=== PATIENT | female | born 1980 | race Caucasian/White ===

== ENCOUNTER 2018-07-17 04:21 | Outpatient (CLI) | payer SELFPAY | END 2018-07-17 04:22 | disposition critical access hospital (66) | LOC: EMS 04:21 | PROVIDERS: ATTEND Surgery | DX: I46.9 Cardiac arrest, cause unspecified (principal) | CPT/HCPCS: A0425; A0433 ==

== ENCOUNTER 2018-07-17 04:39 | Emergency (ER) | payer SELFPAY ==
--- NOTE | 2018-07-17 05:55 | ED Physician Documentation ---
PD HPI CPR - Stated complaint Stated Complaint: CARDIAC ARREST - Chief complaint Chief Complaint: Critical Care - History obtained from History obtained from: Family, EMS - History of Present Illness Timing - onset: Today Timing - onset during: Light activity Preceding symptoms: Dyspnea, Diaphoresis, Weakness Contributing factors: Other (CHF) Recently seen: Not recently seen Witnessed: Arrest witnessed Fall: No fall Bystander CPR: Bystander CPR EMS findings: Unresponsive, Apneic, Pulseless, V fib Treatment [employer]: CPR, Defibrillated, Oxygen, Intubated, Epi, Amiodarone, IV Advanced directive: No advanced directive, Full code - Additional information Additional information: 37-year-old female with a history of congestive heart failure for which she did not complete a course of treatment and for which she did not seek follow-up had been feeling ill the past 2 days. The patient's daughter noted the patient called her into the room and when she arrived there she thought saw her mother struggling for breath and collapsed. The patient's daughter began CPR, EMS was summoned, police were able to perform shock by ED twice prior to arrival of the EMS. On arrival of the EMS CPR was continued the patient was shocked a total of 9 times received 9 mg of epinephrine received 150 and 300 mg of amiodarone and had an IO placed in the left tibia. After 50 minutes of resuscitation by EMS and 10 minutes of resuscitation prior to their arrival the patient arrives to the emergency department with low amplitude complexes. Review of Systems Unable to obtain: Intubated PD PAST MEDICAL HISTORY - Past Medical History Cardiovascular: Congestive heart failure - Present Medications Home Medications: Ambulatory Orders Medication Instructions Recorded Confirmed Home Medications Unobtainable 07/17/18 07/17/18 [HOME MEDICATIONS UNOBTAINABLE] - Allergies Allergies/Adverse Reactions: Allergies Allergy/AdvReac Type Severity Reaction Status Date / Time Unable to Assess Allergy Verified 07/17/18 05:12 - Social History Does the pt smoke?: No Smoking Status: Never smoker PD ED PE NORMAL - Vitals Vital signs reviewed: Yes (the patient arrives ) - General General: Other (Overweight female with ET tube in place with symetric rise and equal sounds has an I/O placed in the left tibia. ) - HEENT HEENT: Atraumatic - Cardiac Cardiac: Other (no sounds and no motion on bedside. ) - Extremities Extremities: Other (woody induration bilaterally ) - Neuro Eye Opening: None Motor: None Verbal: None GCS Score: 3 Results - Vitals Vitals: Vital Signs - 24 hr 07/17/18 04:39 Temperature 35.3 C L Heart Rate 0 L Respiratory 0 L Rate Oxygen O2 Source Ambu bag Procedures - Bedside sono Bedside sono by EMP: With use of bedside ultrasound the heart is imaged and there is no cardiac movement. There is electrical activity demonstrated on the monitor. There is no evidence of effusion. PD MEDICAL DECISION MAKING - ED course Complexity details: reviewed results, considered differential, d/w family ED course: 37-year-old female who is never been seen in our facility has had a cardiac arrest in the field and efforts to resuscitate her in the field have been uns uccessful. She arrives to the emergency department with complexes and with a airway in place. At the time of arrival ultrasound examination of the heart shows no cardiac movement. After review of the course of CPR and confirmation with all team members present efforts were terminated in the emergency department shortly after arrival of the patient. The daughter of the patient was available for consultation and indicated the patient had been noncompliant with medical regimens and did have a history of congestive heart failure. She had recently moved to the area. Departure - Departure Disposition: 20 Clinical Impression: Cardiac arrest
== END 2018-07-17 07:25 | disposition expired ==
LOC: ED 04:39
DX: I46.9 Cardiac arrest, cause unspecified (principal); I50.9 Heart failure, unspecified
CPT/HCPCS: 99285